=== PATIENT | female | born 1975 | race Caucasian/White ===

== ENCOUNTER 2019-08-11 14:49 | Outpatient (CLI) | payer OTHER ==
[~2019-08-11 14:49] MED LIST: PNV1TABL47
== END 2019-08-11 23:59 | disposition home or self-care (01) ==
LOC: CFH 14:49
PROVIDERS: ATTEND Obstetrics & Gynecology
DX: N64.4 Mastodynia (principal)
CPT/HCPCS: 76642; 77066